=== PATIENT | female | born 1990 | race Caucasian/White ===

== ENCOUNTER 2020-08-15 10:49 | Emergency (ER) | payer OTHER, SELFPAY ==
--- NOTE | 2020-08-15 11:01 | ED.GENADULT ---
HPI - General Adult General Chief complaint: Unspecified Stated complaint: upper respiratory infection Time Seen by Provider: 08/15/20 11:02 Source: patient and RN notes reviewed Mode of arrival: ambulatory Limitations: no limitations History of Present Illness HPI narrative: 30-year-old female presents with complaints of possible exposure to COVID-19 and wanting a test for COVID-19. Carol reports no symptoms but has several live in family members with upper respiratory symptoms for the past 5-10 days without relief with treatment. Denies cough and chest congestion. No rhinorrhea and nasal congestion. No high fevers, chills, and sweats. Denies chest pain, coughing up blood, facial pain, foreign body sensation, and rash. The patient reports she have not been diagnosed with COVID-19. The patient reports she is not waiting for the results of a COVID-19 lab test. The patient reports she do not have weakness, myalgia, or fatigue. The patient reports she do not have a new or worsening cough. Denies chest pain. The patient reports she do not have any loss of smell or taste, nausea, vomiting, abdominal pain, or diarrhea. Denies recent traveling. Denies concerns for COVID-19 or exposures been home with limited outdoor exposure except for essential household needs, work, and return home. At this time, patient is not suspected of having COVID-19. Some parts of this dictation were generated by voice recognition software and may contain typographical and/or grammatical inaccuracies. Related Data Allergies Allergy/AdvReac Type Severity Reaction Status Date / Time No Known Allergies Allergy Unknown Verified 04/14/19 14:19 No Known Allergies Allergy Uncoded 04/14/19 14:19 Review of Systems Review of Systems: Narrative: CONSTITUTIONAL: Denies fever, chills, sweats. EYES: Denies visual changes, redness, discharge. ENT: Denies rhinorrhea, congestion, sore throat, otalgia. CARDIOVASCULAR: Denies chest pain, palpitations, edema. RESPIRATORY: Denies wheezing, cough. GASTROINTESTINAL: Denies abdominal pain, nausea, vomiting, diarrhea. GENITOURINARY: Denies dysuria, hematuria, abnormal discharge. SKIN: Denies rash or itching. MUSCULOSKELETAL: Denies acute back pain, joint pain, myalgia. NEUROLOGIC: Denies numbness or focal weakness. PSYCHIATRIC: Denies anxiety or depression. All systems reviewed & are unremarkable except as noted in HPI and below. [facility] Past Medical History Medical History (Updated 08/15/20 @ 16:00 by ESVIN Eckert) Ear infection Surgical History Surgical History (Updated 08/15/20 @ 16:00 by ESVIN Eckert) History of adenoidectomy History of tonsillectomy History of tympanostomy Family History Family History (Updated 08/15/20 @ 16:01 by ESVIN Eckert) Father Alive and well Mother Hypothyroidism Social History Social History (Updated 08/15/20 @ 16:02 by ESVIN Eckert) Smoking status: Former smoker Tobacco type: cigarettes Second hand tobacco smoke exposure: Yes Smoking end date: 07/13/18 Alcohol intake: current Substance use: never Substance use type: does not use Living arrangements: with family Occupation/Education: occupation Gender identity (if verbalized by the patient): Female Sexual Orientation (if Verbalized by the Patient): Straight or Heterosexual Comments At time of signature, agree with nurse past medical, surgical, social, and family history. There is no relevant family history pertinent to the presenting complaint. Exam Narrative: Exam Narrative: GENERAL: This is a well-nourished, well-developed patient, in no apparent distress. Talks in full sentences and ambulates with steady gait without dyspnea. HEAD: Normocephalic, atraumatic. EYES: PERRL. Sclera clear/white. Vision is grossly intact. NOSE: External nose normal with no obvious nasal discharge, nares without redness, no rhinorrhea. THROAT: Mucous membranes mo
[2020-08-15 11:03] VITALS: BP 131/89; PULSE 78; RESP 18; TEMP 36.7; O2SAT 98
== END 2020-08-15 11:49 | disposition home or self-care (01) ==
PROVIDERS: Emergency Provider Nurse Practitioner Family
DX: Z20.822 Contact with and (suspected) exposure to COVID-19 (principal); Z87.891 Personal history of nicotine dependence
CPT/HCPCS: 87426; 99213; C9803; G0463

== ENCOUNTER 2023-06-02 13:44 | Emergency (ER) | payer OTHER, SELFPAY ==
--- NOTE | 2023-06-02 13:52 | ED.URI ---
HPI - URI/Sore Throat General Chief Complaint: Upper Respiratory Infection Stated Complaint: sorethroat,rt ear pain Time Seen by Provider: 06/02/23 13:52 Source: patient Mode of arrival: ambulatory Limitations: no limitations History of Present Illness HPI Narrative: Adilene is a 33-year-old female patient presenting to the clinic today with complaints of sore throat, nasal congestion, and right ear pain times 3 days. She reports no known fever but has had some chills. She is 31 weeks . She denies any shortness of breath or chest pain. MD elicited complaint: sore throat and nasal congestion Related Data Home Medications Medication Instructions Recorded Confirmed Complete 1 tab-cap PO DAILY 06/02/23 06/02/23 Allergies Allergy/AdvReac Type Severity Reaction Status Date / Time No Known Allergies Allergy Unknown Verified 06/02/23 13:53 Review of Systems Review of Systems: Pertinent positives per HPI. Patient denies any fever, rash, headache, visual changes, dizziness, shortness of breath, chest pain, palpitations, nausea, vomiting, diarrhea, constipation, abdominal pain, or any urinary issues. [facility] Past Medical History Medical History BMI 37.0-37.9, adult Callus of foot Ear infection Effusion, left knee PCOS (polycystic ovarian syndrome) Physical exam, annual Weight gain Surgical History Surgical History History of adenoidectomy History of tonsillectomy History of tympanostomy Family History Family History Father Alive and well Mother Hypothyroidism Social History Social History Smoking packs per day: 0.15 Smoking cigarettes per day: 3.0 Years smoked: 2 Smoking pack-years: 0.30 Smoking status: Former smoker Tobacco type: cigarettes Second hand tobacco smoke exposure: Yes Smoking end date: 07/13/18 Alcohol intake: current Alcohol use details: social Substance use: never Substance use type: does not use Lack of Transportation: No Lack of Food: Never True Current Housing: I Have Housing Concerned About Future Housing: No Difficulty Paying Gas/Electric Bills: No Difficulty Paying for Meds: No Currently Unemployed: No Education: Master's Degree or Higher Difficulty w/ Childcare or Family Care: No Living arrangements: with family Occupation/Education: occupation Gender identity (if verbalized by the patient): Female Sexual Orientation (if Verbalized by the Patient): Straight or Heterosexual Comments At the time of my signature, I reviewed and agree with the nursing past medical, surgical, social, and family history. There is no relevant family history pertinent to the patient complaint. Exam Narrative: General: Well-developed, obese, in no apparent distress Head: Normocephalic, atraumatic Eyes: Pupils equally round and reactive to light bilaterally, EOM intact, sclera and conjunctive clear, no discharge, lids normal Ears: TMs intact and congested, ear canals clear, no drainage, grossly hearing normal. Nose: Nares patent, clear nasal discharge, mild inflammation, no sinus tenderness. Mouth: Oral pharynx red without lesions or masses, good dentition, MMM. Neck: Supple, trachea midline, no enlargement of anterior or posterior cervical nodes, no thyroid masses or goiter palpable. Cardio: Regular rate and rhythm, s1 and s2 normal, no murmur appreciated. Resp: Clear to auscultation bilaterally, no rhonchi, rales, wheezing or rubs Course Course Emergency Course: Portions of this record may have been created with voice recognition software. Level of Care: Express Care Visit Vital Signs Vital signs: Vital signs reviewed MDM - URI/Sore Throat MDM Narrative Medical decision making kaushal
[2023-06-02 14:03] VITALS: BP 120/59; PULSE 115; RESP 20; TEMP 36.9; O2SAT 100
== END 2023-06-02 14:29 | disposition home or self-care (01) ==
PROVIDERS: Emergency Provider Nurse Practitioner Family; PCP Family Medicine
DX: U07.1 COVID-19 (principal); Z87.891 Personal history of nicotine dependence
CPT/HCPCS: 87081; 87426; 87804; 87880; 99213; C9803; G0463

== ENCOUNTER 2023-06-24 16:16 | Outpatient (RCR) | payer OTHER, SELFPAY ==
--- NOTE | ~2023-06-24 | US_ITS ---
EXAMINATION: US OB BPP wo non-stress DATE: 06/24/2023 17:31 INDICATION: Decelerations in office . TECHNIQUE: Real-time ultrasound of the pelvis was performed. COMPARISON: None. FINDINGS: There is a single living fetus in vertex presentation, longitudinal lie. The placenta is anterior, m aternal left, and well distant from the cervix. The cervix was poorly visualized, obscured by the fet al head. heart rate is 135 bpm. The deepest vertical pocket is 5.1 cm. Biophysical profile performed by the technologist: breathing (30 sec sustained breathing in 30 minutes): 2 out of 2. movement (3 gross body movements in 30 minutes: 2 out of 2. tone (one episode of onrgchc-vuoyszwyu-fahrdrh limb movement): 2 out of 2. Amniotic fluid pocket (2 cm): 2 out of 2. Total score: 8 out of 8. IMPRESSION: Single living fetus in vertex presentation. Biophysical profile 8 out of 8. Amniotic fluid volume by deepest vertical pocket method is 5.1 cm, which is within normal limits. Reviewed, dictated and finalized at location K. D NURSE IMPRESSION: Single living fetus in vertex presentation. Biophysical profile 8 out of 8. Amniotic fluid volume by deepest vertical pocket method is 5.1 cm, which is wit hin normal limits.
[2023-06-24 16:33] VITALS: BP 123/70; PULSE 85
[2023-06-24 16:45] VITALS: BP 118/65; PULSE 77
[2023-06-24 17:00] VITALS: BP 119/67; PULSE 79
[2023-06-24 17:38] VITALS: BP 119/67; PULSE 76
== END 2023-09-22 23:59 | disposition home or self-care (01) ==
LOC: ANHOBOP 16:16
PROVIDERS: PCP Family Medicine; Visit Provider Advanced Practice Midwife
DX: O36.8330 Maternal care for abnormalities of the fetal heart rate or rhythm, third trimester, not applicable or unspecified (principal); Z3A.34 34 weeks gestation of pregnancy
CPT/HCPCS: 59025; 76819

== ENCOUNTER 2023-07-22 17:38 | Inpatient (IN) | payer OTHER, SELFPAY ==
[2023-07-22] VITALS (99 sets, daily range): BP systolic 92–132; BP diastolic 35–90; PULSE 76–127; TEMP 36.8; O2SAT 96–100; BMI 38.0
--- NOTE | 2023-07-22 18:09 | WPDOBADMIT ---
Obstetrics - Admit Note Admission Note: record reviewed. No pertinent additions to the history and/or any subsequent changes in the physical findings that are not consistent with the expected course of the were found. Additions to the history and/or subsequent changes in the physical findings follow. IOL, oligohydramnios, IVF , hx obesity, covid previously in early , SVE 2-3/70/-2 AROM small amount of clear, odorless fluid, anticipate vaginal delivery
[2023-07-22 18:11] LABS: Basophils Percent Auto 0.3 % (0.2-1.2); Eosinophils Absolute Auto 0.1 K/mm3 (0-0.3); Eosinophils Percent Auto 0.5 % (0-4.4); Hematocrit 38.9 % (37.0-47.0); Hemoglobin 12.4 g/dL (12.0-15.0); Immature Granulocyte Absolute 0.04 K/mm3 (0.00-0.031); Immature Granulocyte Percent A 0.4 % (0-0.5); Lymphocytes Absolute Auto 2.32 K/mm3 (0.9-3.2); Lymphocytes Percent Auto 23.2 % (18.3-44.2); Mean Corpuscular HGB Conc 31.9 g/dl (32-36); Mean Corpuscular Hemoglobin 28.1 pg (26-34); Mean Corpuscular Volume 88.2 fl (80-100); Mean Platelet Volume 11.4 fl (7.4-10.4); Monocytes Absolute Auto 0.5 K/mm3 (0.1-0.6); Monocytes Percent Auto 4.9 % (2.6-8.5); Neutrophils Absolute Auto 7.1 K/mm3 (1.3-6.7); Neutrophils Percent Auto 70.7 % (45.5-73.1); Platelet Count Result 247 k/mm3 (150-375); Red Blood Count 4.41 M/mm3 (4.2-5.4); Red Cell Distribution Width 13.8 % (11.5-14.5)
--- NOTE | 2023-07-22 18:14 | LDADM ---
This patient, Carol Lara, was admitted to Labor/Delivery/Recovery 107 on 07/22/23 at 17:38. Plans for labor, pain management and were discussed with patient. Patient/family oriented to hospital policies and general routines including ID bracelet, bed and alarms, visiting hours, pain management, procedures, bathroom and other care routines, personal items, smoking policy, room service/diet and guest tray routines, security routines, and visiting hours. Patient/Family are encouraged to report perceived risks to care and to ask questions if they do not understand what they are told or what they should do. See OBIX for further documentation.
[2023-07-22] MEDS: OXYTOCIN 30 UNITS/NS 500 ML 30 UNITS/500 ML BAG IV CONT (18:49)
[2023-07-22] MEDS: LACTATED RINGERS 1,000 ML 125 ML IV CONT (18:50)
--- NOTE | 2023-07-22 19:03 | WPDANESEPP ---
Anes - Eval Pre Procedure Procedure: labor epidural Date/Time: 07/22/23 19:03 Pre Op Diagnosis: ougo-induction Patient Data Age: 33 Gender: F Height: 1.7 m Weight: 110 kg Last Vital Signs Temp 36.8 C 07/22/23 18:14 Pulse Ox 99 07/22/23 19:00 O2 Del Method Room Air 07/22/23 18:14 Allergies Allergy/AdvReac Type Severity Reaction Status Date / Time No Known Allergies Allergy Unknown Verified 06/02/23 13:53 Home Medications Medication Instructions Recorded Confirmed Type Complete 1 tab-cap PO DAILY 06/02/23 06/02/23 History aspirin 81 mg tablet,delayed 81 mg PO DAILY 07/03/23 07/03/23 History release (Blayne Low Dose Aspirin) Laboratory Tests 07/22/23 18:07 WBC 10.0 K/mm3 (4.5-10.0) RBC 4.41 M/mm3 (4.2-5.4) Hgb 12.4 g/dL (12.0-15.0) Hct 38.9 % (37.0-47.0) MCV 88.2 fl (80-100) MCH 28.1 pg (26-34) MCHC 31.9 L g/dl (32-36) RDW 13.8 % (11.5-14.5) Plt Count 247 k/mm3 (150-375) MPV 11.4 H fl (7.4-10.4) Immature Gran % (Auto) 0.4 % (0-0.5) Neut % (Auto) 70.7 % (45.5-73.1) Lymph % (Auto) 23.2 % (18.3-44.2) [place] % (Auto) 4.9 % (2.6-8.5) Eos % (Auto) 0.5 % (0-4.4) Baso % (Auto) 0.3 % (0.2-1.2) Lymph # (Auto) 2.32 K/mm3 (0.9-3.2) [place] # (Auto) 0.5 K/mm3 (0.1-0.6) Eos # (Auto) 0.1 K/mm3 (0-0.3) Baso # (Auto) 0.0 K/mm3 (0.0-0.1) Abs Immat Gran (auto) 0.04 H K/mm3 (0.00-0.031) Absolute Neuts (auto) 7.1 H K/mm3 (1.3-6.7) Absolute Nucleated RBC 0.0 K/mm3 (0.0-0.012) Nucleated RBC % 0.0 % (0.0-0.2) RPR Pending Blood Type A Positive Antibody Screen Pending Patient hx anesthesia problems: none Family hx anesthesia problems: none Results Review: All pre-operative results and documents have been reviewed as part of the pre-operative evaluation. [facility] Past Medical History Medical History BMI 37.0-37.9, adult Callus of foot Ear infection Effusion, left knee PCOS (polycystic ovarian syndrome) Physical exam, annual Weight gain Surgical History Surgical History History of adenoidectomy History of tonsillectomy History of tympanostomy Family History Family History Father Alive and well Mother Hypothyroidism Social History Social History Smoking packs per day: 0.15 Smoking cigarettes per day: 3.0 Years smoked: 2 Smoking pack-years: 0.30 Smoking status: Former smoker Tobacco type: cigarettes Second hand tobacco smoke exposure: Yes Smoking end date: 07/13/18 Alcohol intake: current Alcohol use details: social Substance use: never Substance use type: does not use Do You Feel Safe in your Home?: Yes Lack of Transportation: No Lack of Food: Never True Current Housing: I Have Housing Concerned About Future Housing: No Difficulty Paying Gas/Electric Bills: No Difficulty Paying for Meds: No Currently Unemployed: No Education: Master's Degree or Higher Difficulty w/ Childcare or Family Care: No Living arrangements: with family Occupation/Education: occupation Gender identity (if verbalized by the patient): Female Sexual Orientation (if Verbalized by the Patient): Straight or Heterosexual Spiritual care concerns: No Exam Day of Procedure 07/22/23 19:03 Patient weight: obese Heart: regular rate and rhythm Lungs: normal air movement Airway: Mallampati scale Neurological: alert and oriented
--- NOTE | 2023-07-22 23:46 | PM.OBPRVD ---
OB - Vaginal Delivery Note Procedure Delivery date: 07/22/23 Events: Other (IVF, oligohydramnios) Induction method: AROM and Per Pitocin Protocol Delivery monitor: External FHT and External Uterine Route of delivery: Laceration Description: Superficial Specimen: Yes Quantitative Blood Loss (ml): 100 Anesthesia type: Epidural Disposition: Floor [place] Baby Date of : 07/22/23 Time of : 23:35 Weeks of gestation at delivery: 38 gender: Female presentation: vertex position: Left Occiput Anterior Placenta delivery description: Spontaneous Cord Vessel Description: 3 Vessels and Other (short, shearing after delivery of fetus, clamped and cut) score one minute: 8 score five minutes: 8 Narrative: head delivered rotated to DARWIN, anterior shoulder not easily delivered, rotated to the right and then was able to deliver anterior shoulder, the rest of the baby followed quickly after, short cord, shearing and small blood loss about 05 cc, cord clamped and then cut.baby moving all extremities, skin to skin and in stable condition
[2023-07-23] VITALS (12 sets, daily range): BP systolic 84–131; BP diastolic 49–75; PULSE 84–114; RESP 16–18; TEMP 36.6–36.9; O2SAT 97–100
[2023-07-23] MEDS: BENZOCAINE 20% AER SPR (*SP) 56 GM CAN 1 SPRAY TOPICAL (01:50)
[2023-07-23] MEDS: WITCH HAZEL 40 PADS 1 PAD TOPICAL (01:50)
--- NOTE | 2023-07-23 01:52 | PC.NURSE ---
Patient transferred to post room # 285 via ( W/C ). Support person present. Oriented to unit, room, information board, rooming in, admission packet and security measures. Patient verbalizes understanding.
[2023-07-23] MEDS: IBUPROFEN 600 MG TABLET PO ×3 (05:00→19:16)
[2023-07-23 05:48] LABS: Hematocrit 34.4 % (37.0-47.0); Hemoglobin 10.8 g/dL (12.0-15.0)
[2023-07-23] MEDS: DOCUSATE SODIUM 100 MG CAPSULE PO (08:07)
[2023-07-23] MEDS: MULTIVIT/MIN/PREN/FOL AC/IRON TABLET 1 TAB PO (08:07)
--- NOTE | 2023-07-23 08:23 | P.PNOB_ITS ---
OB - PN: Subj Subjective Date/time seen: 07/23/23 08:23 Patient comments: no complaints, pain well controlled, incisional pain, tolerating diet and flatus present OB - PN: Obj Data Labs 07/23/23 04:50 Labs: Laboratory Results - last 24 hr 07/22/23 07/23/23 18:07 04:50 WBC 10.0 RBC 4.41 Hgb 12.4 10.8 L Hct 38.9 34.4 L MCV 88.2 MCH 28.1 MCHC 31.9 L RDW 13.8 Plt Count 247 MPV 11.4 H Immature Gran % (Auto) 0.4 Neut % (Auto) 70.7 Lymph % (Auto) 23.2 [place] % (Auto) 4.9 Eos % (Auto) 0.5 Baso % (Auto) 0.3 Lymph # (Auto) 2.32 [place] # (Auto) 0.5 Eos # (Auto) 0.1 Baso # (Auto) 0.0 Abs Immat Gran (auto) 0.04 H Absolute Neuts (auto) 7.1 H Absolute Nucleated RBC 0.0 Nucleated RBC % 0.0 Blood Type A Positive Antibody Screen Negative OB - PN A/P Plan day: 1 Plan: routine care Comments: No problems, routine care Time Spent With Patient Time: Total time spent is greater than 50% in coordination of care (as documented) at patient's floor/unit and/or counseling patient: Exam Const: General: comfortable, no acute distress and alert Resp: Effort & Inspection: normal respiratory effort Auscultation: no crackles, no rales and no rhonchi Cardio: Rate: regular rate Heart sounds: no click, no murmurs and no rubs GI: Inspection: non-distended GI Palp: No Tenderness to palpation present (GI) Auscultation: normal bowel sounds Other: Incision - CDI Extrem: General: normal to inspection, no pedal edema and no calf tenderness
--- NOTE | 2023-07-23 09:01 | WPDANLDPN2 ---
Anes-Prog Note L&D Date/Time: 07/23/23 09:01 Comfortable throughout: labor and delivery Neuraxial method: epidural Epidural/Spinal procedure site: clean & non-tender Neuro status: Neuro function grossly intact. Cardiovascular status: normal Respiratory status: normal Airway patency: baseline Mental status: baseline Post-Op hydration status: normal Vital Signs: Last Vital Signs Temp 36.9 C 07/23/23 04:30 Pulse 89 07/23/23 04:30 Resp 18 07/23/23 04:30 BP 114/66 07/23/23 04:30 Pulse Ox 97 07/23/23 04:30 O2 Del Method Room Air 07/23/23 02:14 Pain score (VAS): 3/10 I/O: Intake & Output 07/22/23 07/23/23 07/23/23 23:59 07:59 15:59 Intake Total 500 Output Total 50 Balance 500 -50 Post-procedural complaints: none Patient feedback: Patient satisfied with anesthetic care.
--- NOTE | 2023-07-23 13:42 | PC.NURSE ---
[id number] Introductions were made, then consulted with patient to assess needs related to . Discussed with mother her?plans to feed?her infant, the?experience so far and reviewed with mother questions, concerns, and education refresher. Resources provided for inpatient and outpatient services with the feeding sheet, mom/baby guide and name written on the communication board. Mother voiced understanding of information and will call for the next feeding. [id number] Mother led the conversation with her experience so far, plan to feed her infant, and her ability to independently latch optimally without discomfort. Mother states she has been having trouble keeping her daughter awake to maintain so we practiced changing positioning, breast sides, gentle compression, and making sure infant was awake and latched deeply. Infant latched optimally to the left, then right breast in football and cross cradle position after mother attempted with cradle. Education given to the mother of how to visualize the suckling (with good rocking jaw motion), swallows (dropping of the lower jaw) and how to listen for drinking at the breast (the ka sound). Infant was able to maintain latch without pain to mother protecting the nipple with optimal positioning and latching deeply. Mother voiced understanding of skin to skin, stimulating with massage touch, responsive feedings, to encourage if it has been 2 -2.5 hours since the start of the last and possibly pump to protect her milk supply if infant doesn't maintain. Mother is feeding appropriately for growth of and understands stimulating infant to eat if needed. Infant has had appropriate feedings in the last 24 hours meets the outcomes for weight, output, blood sugar and jaundice at this time. Mother states she is confident to continue effectively her at home, when to call for assistance, denies any additional assistance or education at this time. Reinforced understanding of milk production, transition of milk, signs of adequate intake, transition of stool, prevention/relief of engorgement, plugged ducts, mastitis, responsive watching for feeding cues, the different methods of stimulating infant to breastfeed 1-3 hours after the start of the last feeding, community resources, and when to call a provider using the resource of the mom and baby guide and feeding sheet. Mother voiced understanding of the education shared. Reported to the Primary RN.
[2023-07-23 16:56] LABS: Rapid Plasma Reagin Non-Reactive (NonReactive)
[2023-07-24] MEDS: IBUPROFEN 600 MG TABLET PO ×2 (03:44→11:19)
[2023-07-24 07:50] VITALS: BP 122/81; PULSE 82; RESP 18; TEMP 36.2; O2SAT 100
--- NOTE | 2023-07-24 08:02 | PM.OBPNVD ---
OB - PN: Subj Subjective Date/time seen: 07/24/23 08:02 Interval history: pp day 2 OB - PN: Obj Data Labs 07/23/23 04:50 Labs: Laboratory Results - last 24 hr 07/22/23 18:07 RPR Non-reactive OB - PN A/P Time Spent With Patient Time: Total time spent is greater than 50% in coordination of care (as documented) at patient's floor/unit and/or counseling patient: Review of Systems Review of Systems: All systems reviewed & are unremarkable except as noted in HPI and below Exam Const: General: cooperative, healthy appearing and comfortable Resp: Effort & Inspection: normal respiratory effort Cardio: Rate: regular rate GI: Inspection: normal to inspection Skin: General skin exam: normal color Neuro: General: patient oriented x3 Extrem: Right lower extremity: normal to inspection Left lower extremity: normal to inspection
--- NOTE | 2023-07-24 08:03 | PM.OBDSVD ---
DS: Admitting Diagnosis Discharge Date 07/24/23 Admitting Diagnosis IOL, oligohydramnios DS: Discharge Diagnosis Discharge Diagnosis (1) Vaginal delivery: Code(s): O80 - Encounter for full-term uncomplicated delivery Status: Acute OB - DS: Summary OB Procedures : None OB Procedures Intrapartum: Spontaneous Vag Delivery OB Procedures: : None Peripartum Data Laceration Description: Superficial Time Spent with Patient Time attestation: Total time spent providing and/or coordinating discharge services: DS: Data Data Completed and Pending Pending studies at discharge: Pending at discharge 07/22/23 23:37 Surgical [PTH] Routine Labs on day of discharge: Labs from last 24 hours 07/22/23 18:07 RPR Non-reactive Discharge Plan Discharge Attending physician on discharge: Leeanna Sethi Discharging Clinician: Ivonne Becerril Patient Disposition: Home, Self-Care Activity: pelvic rest Diet: regular Patient Instructions: Antibiotic Form Stand Alone Forms: General Discharge Information Follow-up/Referrals: Ivonne Becerril, CNM [Certified Nurse Senior Solutions Architect] - 4 Weeks Discharge Medications: New ibuprofen 600 mg Tablet 600 mg PO Q6H PRN (Reason: Cramping) Qty: 30 0RF Continued Complete 1 tab-cap PO DAILY Discontinued aspirin [Blayne Low Dose Aspirin] 81 mg Tablet,Delayed Release (Dr/Ec) 81 mg PO DAILY Date of admission: 07/22/23 17:38 Primary Care Provider: Johnny Qureshi Admitting Provider: Leeanna Sethi Attending physician on admission: Leeanna Sethi Condition: Stable
[2023-07-24] MEDS: LANOLIN (LANSINOH) 7.5 GM CREAM 1 APPLIC TOPICAL (08:19)
[2023-07-24] MEDS: DOCUSATE SODIUM 100 MG CAPSULE PO (08:19)
[2023-07-24] MEDS: MULTIVIT/MIN/PREN/FOL AC/IRON TABLET 1 TAB PO (08:19)
--- NOTE | 2023-07-24 10:00 | PC.NURSE ---
Patient viewed the discharge video Mother & Baby Care, The First Two Weeks online. Patient was given the opportunity and encouraged to ask questions. Patient verbalized understanding of information shared and has been given the mother/baby guide for home reference.
--- NOTE | 2023-07-24 17:17 | PC.NURSE ---
[id number] Mother led the conversation with her experience so far, plan to feed her , and is demonstrating her ability to independently latch infant optimally without discomfort cross cradle to the left breast. Reminded mother to use good handwashing technique to prevent infection. Mother is feeding appropriately for growth of infant and understands stimulating infant to eat if needed. Infant has had appropriate feedings in the last 24 hours meets the outcomes for weight, output, blood sugar and jaundice at this time. Mother states she is confident to continue effectively her infant at home, when to call for assistance, denies any additional assistance or education at this time. Reinforced understanding of milk production, transition of milk, signs of adequate intake, transition of stool, prevention/relief of engorgement, plugged ducts, mastitis, responsive watching for feeding cues, the different methods of stimulating to breastfeed 1-3 hours after the start of the last feeding, community resources, and when to call a provider using the resource of the mom and baby guide and feeding sheet. Mother voiced understanding of the education shared. Reported to the Primary RN.
[2023-07-25 10:29] VITALS: BP 130/74; PULSE 73; RESP 18; TEMP 36.9; O2SAT 100
== END 2023-07-24 13:05 | disposition home or self-care (01) | DRG 807 ==
LOC: ANHLDR 17:40 → ANHOB2 07-23 01:54
PROVIDERS: Advanced Practice Midwife; Admitting Provider Obstetrics & Gynecology; PCP Family Medicine; Visit Provider Obstetrics & Gynecology
DX: O41.03X0 Oligohydramnios, third trimester, not applicable or unspecified (principal); Z37.0 Single live birth; Z3A.38 38 weeks gestation of pregnancy; O69.3XX0 Labor and delivery complicated by short cord, not applicable or unspecified; O62.3 Precipitate labor
CPT/HCPCS: 36415; 85014; 85018; 85025; 86592; 86850; 86900; 86901; 88307; A9270; J2590; J7120

== ENCOUNTER 2024-09-20 09:00 | Outpatient (CLI) | payer OTHER, SELFPAY ==
--- NOTE | ~2024-09-20 | XR_ITS ---
XR knee RT min 4V Ordering provider: Elvie French APRN History: . S89.91XA - Unspecified injury of right lower leg, initial... . Comparison: None. FINDINGS: BONES: No acute fracture or dislocation. JOINT SPACES: Normal. SOFT TISSUES: Normal. IMPRESSION: No acute osseous abnormality right knee. Reviewed, dictated and finalized at location A.
--- OUTSIDE RECORDS SUMMARY | 2024-09-20 09:36 | XMS_ITS | Clinical Summary ---
Author Organization [facility] Address [address] [place] [address] Care Team Providers Care Early Childhood Associate Teacher Name Role Phone Chandrakant Rios DO Primary Care Provider [phone] Allergies No known active allergies Medications estradioL (Estrace) 2 mg tablet Take 1 tablet (2 mg total) by mouth 2 (two) times a day 60 tablet 2 10/02/2022 Active vit no.124/iron/fol ic ( VITAMIN ORAL) Take by mouth Ac tive progesterone 50 mg/mL injection Inject 25mg to 100mg IM daily as directed by 20 mL 2 12/11/2022 Active Active Problems No known active problems Surgical History Surgery Date Site/Laterality Comments TONSILECTOMY, ADENOIDECTOMY, BILATERAL MYRINGOTOMY AND TUBES OVUM / OOCYTE RETRIEVAL 11/06/2022 egg retrieval TRANSFER EMBRYO INTRAUTERINE 11/09/2022 Embryo Transfer 1 day 3 Medical History Medical History Date Comments Polycystic ovary syndrome Family History Medical History Relation Name Comments Thyroid disease Mother Cancer Other Paternal Aunt Thyroid disease Other Maternal Aun ts Thyroid disease Paternal Grandmother Relation Name Status Comments Mother Other Paternal Grandmother Social History Tobacco Use Types Packs/Day Years Used Date Smoking Tobacco: Never AUDIT-C Answer Date Recorded Frequency of Alcohol Consumption Not on file 08/02/2021 Q2: How many drinks containi ng alcohol do you have on a typical day when you are drinking? 3 or 4 08/02/2021 Frequency of Binge Drinking Not on file 07/14 Comments Unknown Sex and Gender Information Value Date Recorded Sex Assigned at Not on file Legal Sex Female 10:28 AM PACKER OPERATOR AUTOMATIC Gender Identity Female 07/27/2021 10:31 PM PACKER OPERATOR AUTOMATIC Sexual Orientation Straight 07/27/2021 10 :31 PM PACKER OPERATOR AUTOMATIC Obstetrics History Para Term AB IAB SAB Ectopic Multiple Livin g Live Births 2 1 1 1 1 Date Outcome GA Total Labor Labor/2nd/3rd Weight Sex Type Anes PTL Becca A1 A5 Name Clin 2018 Term M Vag-S pont Living Last Filed Vital Signs Vital Sign Reading Time Taken Comments Blood Pressure 120/79 04/27/2023 2:42 PM CDT Pulse 82 12/11/2022 1:38 PM CDT Temperature 37 C (98.6 F) 11/06/2022 7:23 AM CDT Respiratory Rate 17 11/06/2022 10:15 AM CDT Oxygen Saturation 99% 11/06/2022 10:15 AM CDT Inhaled Oxygen Concentration - - Weight 113.4 kg (250 lb) 04/27/2023 2:42 PM CDT Height 170.2 cm (5' 7 ) 04/27/2023 2:42 PM CDT Body Mass Index 39.16 04/27/2023 2:42 PM CDT Plan of Treatment Health Maintenance Due Date Last Done Comments Cervical Cancer Screening 1991 Depression Screening 1991 Varicella Vaccines (1 of 2 - 13+ 2-dose series) 02/05/2004 Hepatitis B Screening 2009 Regular Well Visit/Exam 18-64 2009 Influenza Vaccine (#1) 2024 , 04/14/2019 DTaP/Tdap/Td Vaccine (3 - Td or Tdap) 06/12/2033 06/12/2023, 03/09/2019 Hepatitis C Screening Completed 05/29/2022 HPV Vaccines Aged Out No longer eligi ble based on patient's age to complete this topic Pneumococcal vaccine <65 Aged Out No longer eligible based on patient's age to complete this topic Procedures Procedure Name Priority Date/Time Associated Diagnosis Comments HEPATITIS C ANTIBODY Routine 05/29/2022 2:18 PM PACKER OPERATOR AUTOMATIC Screening examination for venereal disease from Last 3 Months or Most Recently Relevant to Health Maintenance Results * Hepatitis C antibody (05/29/2022 2:18 PM PACKER OPERATOR AUTOMATIC) Hep C Ab Nonreactive Nonreactive [facility] Comment:Antibodies to HCV no t detected. Does NOT exclude the possibility of recent exposure to HCV. Current interpretive data was last revised on 22 Blood 05/29/2022 2:18 PM PACKER OPERATOR AUTOMATIC 05/29/2022 4:37 PM PACKER OPERATOR AUTOMATIC us Em Marrreo MD LAB MICROBIOLOGY - G ENERAL ORDERABLES Final Result [facility] Department [place] [address] from Last 3 Months or Most Recently Relevant to Health Maintenance Insurance [facility] CHOICE PLUS [facility] H[facility]/PPO Address: [address] [address] [facility] CHOICE PLUS [facility] H[facility]/PPO Address: [address] [address] [place] [address] Advance Directives For more information, please contact: [phone] * Full Code (Latest Code Status on File) Date Activated Date Inactivated Comments 11/06/2022 6:55 AM 11/07/2022 5:24 AM Care Teams Early Childhood Associate Teacher Relationship Specialty Start Date End Date Chandrakant Rios DO PCP - General Internal Medicine 06/14/21
--- OUTSIDE RECORDS SUMMARY | 2024-09-20 09:36 | XMS_ITS | Referral Summary ---
Author Organization [facility] Address [address] [place] [address] Care Team Providers Care Museum Attendant Name Role Phone Chandrakant Rios Primary Care Provider [phone] Allergies No known active allergies Medications estradioL [...] Active Active Problems No known active problems Social History Tobacco Use Types Packs/Day Years [...] on file Legal Sex Female 10:28 AM SYSTEM ARCHITECT Gender Identity Female 07/27/2021 10:31 PM SYSTEM ARCHITECT Sexual Orientation Straight 07/27/2021 10 :31 PM SYSTEM ARCHITECT Last Filed Vital Signs Vital Sign Reading [...] 04/27/2023 2:42 PM CDT Plan of Treatment Not on file Procedures Procedure Name Priority Date/Time Associated Diagnosis Comments HEPATITIS C ANTIBODY Routine 05/29/2022 2:18 PM SYSTEM ARCHITECT Screening examination for venereal disease from Last 3 Months or Most Recently Relevant to Health Maintenance Results * Hepatitis C antibody (05/29/2022 2:18 PM SYSTEM ARCHITECT) Hep C Ab Nonreactive Nonreactive [facility] Comment:Antibodies to HCV no t detected. Does NOT exclude the possibility of recent exposure to HCV. Current interpretive data was last revised on 22 Blood 05/29/2022 2:18 PM SYSTEM ARCHITECT 05/29/2022 4:37 PM SYSTEM ARCHITECT Em Marrero MD LAB MICROBIOLOGY - G ENERAL ORDERABLES Final Result [facility] Department [place] [address] from Last 3 Months or Most Recently Relevant to Health Maintenance Insurance [facility] CHOICE PLUS Member Subscriber Plan / Payer (Ef fective 2022-Present) Name:Carol Bishop Relation to Subscriber:Self Name:Carol Bishop Payer ID:[id number] (NAIC) Type:[facility] HMO/PPO Address: [place] [id number] [facility] CHOICE PLUS Advance Directives For more information, please contact: [phone] * Full Code (Latest Code Status on File) Date Activated Date Inactivated Comments 11/06/2022 6:55 AM 11/07/2022 5:24 AM Care Teams Museum Attendant Relationship Specialty Start Date End Date Chandrakant Rios DO PCP - General Internal Medicine 06/14/21
--- OUTSIDE RECORDS SUMMARY | 2024-09-20 09:37 | XMS_ITS | Data Portability ---
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 Discussed plan. Not available 07/22/2023 16:42:19 07/22/2023 07/22/2023 NST not completed. Pt to L & D for IOL. ADRYAN RICHTER Not available 07/22/2023 18:28:38 02/26/2024 02/26/2024 Annual gynecological exam performed. Patient will come back in a year unless there are new symptoms. Take Calcium with Vitamin D 1200mg daily if not receiving in daily diet. It is strongly advised to have an annual flu shot and up can obtain at most pharmacies. If you have not had a TDap shot in the last 10 years you should obtain one as well. Discussed with patient & provided with information regarding Gardisil vaccine to prevent the 4 strains for HPV that cause cervical cancer if under age 26. Encourage safe sexual practices, to use condoms and limit partners if not already in a monogamous relationship. Do monthly self breast exams. Have mammogram yearly or every other year depending on family history. BRCA testing is now available for patients with strong genetic history of female cancer. If interested contact the office. Engage in daily exercise of low impact aerobic exercise 45-60 minutes 4-5 times weekly. Avoid tobacco and illicit drugs as well as using moderation with alcohol intake less than 1-2 8 oz beverages daily. This lifestyle behavior pattern will lead to less health conditions and longer life span. If BMI greater than 25 weight watchers or dietary consult advised. Patient received above instructions, and questions have been answered. If you have any questions please call or respond to this email. Patient was made aware of the patient portal and may obtain a paper copy of today's plan if desired. pap not collected plan prometrium q 3 months for a withdrawal bleed after stopping f/u one year [email or web address] Not available 02/26/2024 16:36:53 Plan of Treatment Reminders Order Date Submit Date Provider Last Modified By Organization Details Last Modified Time Details Appointments None recorded. Lab None recorded. Referral None recorded. Procedures None recorded. Surgeries None recorded. Imaging US, obstetric, biophysical profile + non-stress test 2023 024 [email or web address] [place], [address], [place], [address], 4 23:04:14 non-stress test 2023 024 [facility] [address], [place], [address], 4 16:55:59 Medication Orders Provera 10 mg tablet 2023 024 [facility] 009, [address], [address], 16:37:42 Patient TargetsNo targets recorded. Patient InstructionsNo instructions recorded. Reason for Referral None Reported. Results Created Date Observation Date Name Description Value Unit Range Abnormal Flag Note LastModifiedBy Organization Detail LastModifiedTime 07/03/20 23 07/03/2023 CULTU RE: GROUP B STREP SCREE N, REFLE X SUSCE PTIBI LITY result report SEE RESULT S BELOW Test: Cultu re: Group B Strep , Refle x Susce ptibi lity ([facility]/ [facility] ) Speci men Sourc e: Vagin a/Rec dennis Speci men Type: Vagin al/Re ctal Speci men Date: 07/03 2:28 PM Resul t Date: 07/06 2:37 PM Resul t Statu s: Final resul t Abnor mal: No Resul ting Lab: [facility] [address] [facility] [address] Tel: CULTU RE ----- ----- ----- --- No Group B strep isola alanis at 2 days (dixon ctive broth enhan cemen t) Not Available [facility] (Lab) [address], [place], [address], 07/06/2023 15:41:36 06/24/2006/24/2023 non-s tress test No observ ation record ed. [email or web address] [place] [address], [place], [address], 06/24/2023 18:35:52 06/24/2006/24/2023 , obste tric, follo w-up No observ ation record ed. [email or web address] [facility], [place], [address], 06/25/2023 10:15:26 06/24/20 23 06/24/2023 , obste tric, follo w-up No observ ation record ed. [address] [facility], [place], [address], 06/25/2023 10:15:26 07/03/20 non-s tress test No observ ation record ed. [email or web address] Not Available 07/03 12:29:51 07/03/20 23 07/03/2023 non-s tress test No observ ation record ed. [email or web address], [place], [address], 07/20/2023 13:17:02 07/03/20 23 07/03/2023 US, obste tric, follo w-up No observ ation record ed. kia Radha [address], [place], [address], 07/15/2023 12:26:03 07/08/20 23 07/08/2023 non-s tress test No observ ation record ed. kia [place] [address], [place], [address], 07/08/2023 18:02:55 07/08/20 23 07/08/2023 US, obste tric, bioph ysica l profi le No observ ation record ed. kia [place] [address], [place], [address], 07/08/2023 18:03:17 07/08/20 23 07/08/2023 US, obste tric, follo w-up No observ ation record ed. [email or web address] [address], [place], [address], 07/10/2023 09:09:28 07/10/20 23 07/10/2023 US, obste tric, follo w-up No observ ation record ed. [email or web address] [address], [place], [address], 07/14/2023 13:08:10 07/10/20 23 07/10/2023 US, obste tric, limit ed No observ ation record ed. [email or web address] [place] [address], [place], [address], 07/10/2023 18:09:55 07/15/19 24 07/15/2023 non-s tress test No observ ation record ed. [email or web address] [place] [address] [address], [place], [address], 07/15/2023 17:48:21 07/15/19 24 07/15/2023 US, obste tric, follo w-up No observ ation record ed. [email or web address] [place] [address], [place], [address], 07/15/2023 18:23:12 07/15/19 24 07/15/2023 US, obste tric, bioph ysica l profi le + non-s tress test No observ ation record ed. [email or web address] [place] [address], [place], [address], 07/15/2023 18:23:24 07/15/19 24 07/15/2023 US, obste tric, follo w-up No observ ation record ed. [email or web address] [address], [place], [address], 07/15/2023 21:15:40 07/22/19 24 07/22/2023 US, obste tric, bioph ysica l profi le + non-s tress test No observ ation record ed. [email or web address] [place] [address], [place], [address], 07/22/2023 16:28:48 07/22/19 24 07/22/2023 US, obste tric, bioph ysica l profi le + non-s tress test No observ ation record ed. Rdaha [address], [place], [address], 07/23/2023 09:54:34 07/22/19 24 12/22/2023 non-s tress test No observ ation record ed. [email or web address] [place] [address], [place], [address], 12/22/2023 20:30:25 Result Notes None recorded. Problems Name Problem SNOMED Code Status Onset Date Resolution Date Notes Provider Name and Address Organization Details Recorded Time Finding of fertilit y Completed 201707/18/2020 Female infertil ity;Bernard rded Elsewher e: No Locat ion: [facility] S ource: EHR Sales Team Leader dex: N Practi ce ID: 0001 Rufino lable Time: 03:30:00 PM [facility] 18:06:38 Pregnanc y, childbir th and puerperi um finding Completed 201807/18/2020 Encntr for suprvsn of normal first preg, third trimeste r;Record ed Elsewher e: No Locat ion: [facility] S ource: EHR Sales Team Leader dex: N Practi ce ID: 0001 Rufino lable Time: 05:00:00 PM [facility] 18:07:09 Amenorrh ea [id number] Completed 201612/03/2020 Amenorrh ea, unspecif ied;Prac margarito ID: 0001 [facility], [facility] 10:48:38 Pregnanc y test negative 439846411 Completed 201607/18/2020 Encounte r for pregnanc y test, result negative ;Practic e ID: 0001 [facility], [facility] 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 18:07:18 Pregnanc y detectio n examinat ion Completed 201807/18/2020 Encounte r for pregnanc y test, result positive ;Practic e ID: 0001 [facility], [facility] 18:06:57 Gestatio n period, 9 weeks 972560 Completed 201807/18/2020 9 weeks gestatio n of pregnanc y;Practi ce ID: 0001 Emili zuleta, [facility] 18:06:49 Normal pregnanc y in libiaa kristin [id number] 00008 Completed 201807/18/2020 Encounte r for suprvsn of normal pregnanc y, first trimeste r;Practi ce ID: 0001 Emili zuleta, [facility] 18:06:54 Antenata l screenin g Completed 201807/18/2020 Encounte r for other specifie d antenata l screenin g;Practi ce ID: 0001 Emili zuleta, [facility] 18:06:25 Pregnanc y, childbir th and puerperi um finding Completed 201807/18/2020 Encntr for suprvsn of normal first preg, second trimeste r;Practi ce ID: 0001 Emili zuleta, [facility] 18:07:06 Complica tion of pregnanc y, childbir th and/or puerperi um [id number] Completed 201807/18/2020 Oth diseases and conditio ns compl preg/chl dbrth;Pr actice ID: 0001 Emili zuleta, [facility] 18:07:29 Finding of contents of cervix 896651397 Completed 201807/18/2020 Weeks of gestatio n of pregnanc y not specifie d;Practi ce ID: 0001 Emili zuleta, [facility] 18:06:33 Antenata l screenin g for malforma tion Completed 201807/18/2020 Encounte r for antenata l screenin g for malforma tions;Pr actice ID: 0001 Emili zuleta, [facility] 18:06:29 Pregnanc y, childbir th and puerperi um finding Completed 201807/18/2020 Encntr for suprvsn of normal first pregnanc y, unsp trimeste r;Practi ce ID: 0001 Emili zuleta, [facility] 18:07:03 Placenta previa 18262678 Completed 201812/03/2020 Placenta previa specifie d as w/o hemor, second trimeste r;Practi ce ID: 0001 Carol zuleta, [facility] 10:48:41 Gestatio n period, 24 weeks 089114593 Completed 201807/18/2020 24 weeks gestatio n of pregnanc y;Practi ce ID: 0001 Emili zuleta, [facility] 18:06:41 Term pregnanc y delivere d [id number] Completed 201807/18/2020 Encounte r for full-ter m uncompli cated delivery ;Practic e ID: 0001 Emili zuleta, [facility] 18:07:24 Single live [id number] Completed 201807/18/2020 Single live ;Pr actice ID: 0001 Emili zuleta, [facility] 18:07:13 Gestatio n period, 39 weeks 10293930 Completed 201807/18/2020 39 weeks gestatio n of pregnanc y;Practi ce ID: 0001 Emili zuleta, [facility] 18:06:47 Lochia finding Completed 201812/03/2020 Encounte r for routine postpart um follow-u p;Practi ce ID: 0001 Carol zuleta, [facility] 10:48:40 Uterine size for dates discrepa ncy Completed 201807/18/2020 Uterine size-castro e discrepa ncy, third trimeste r;Record ed Elsewher e: No Locat ion: [facility] S ource: EHR Sales Team Leader dex: N Daveyti ce ID: 0001 Rufino lable Time: 04:30:00 PM [facility] 18:07:[address] Concept Completed 201607/18/2020 Encntr for general adult medical exam w/o abnormal findings ;Recorde d Elsewher e: No [facility]: EHR Sales Team Leader dex: N Daveyti ce ID: 0001 Rufino lable Time: 01:00:00 PM [facility] 18:07:16 Speciali zed medical examinat ion Completed 201307/18/2020 Gynecolo gical Examinat ion;Bernard rded Elsewher e: No Locat ion: [facility] S ource: EHR Sales Team Leader dex: N Daveyti ce ID: 0001 Rufino lable Time: 03:00:00 PM [facility] 18:07:21 Gestatio n period, 33 weeks [id number] Completed 201807/18/2020 33 weeks gestatio n of pregnanc y;Record ed Elsewher e: No Locat ion: [facility] S ource: EHR Sales Team Leader dxe: N Practi ce ID: 0001 Rufino lable Time: 04:30:00 PM [facility] 18:06:43 Screenin g for malignan t neoplasm of cervix Completed 201307/18/2020 Screenin g for malignan t neoplasm s of the cervix;R ecorded Elsewher e: No Locat ion: [facility] S ource: EHR Sales Team Leader dex: N Practi ce ID: 0001 Rufino lable Time: 03:00:00 PM Emili zuleta, [facility] 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 3 09:38:54 Pregnanc y 88242149 Completed 202207/24/2023 [facility], [facility] 4 13:11:24 Maternal obesity complica ting pregnanc y, childbir th and the puerperi um, antepart um 6056324766 07 Completed 2022 BMI 38- ante testing at 37w Blaireparmjit [facility], [facility] 4 13:11:16 IVF - in-vitro fertiliz ation pregnanc y 5920351391 2101 Completed 2022 echo normal, ante testing 36w [facility], [facility] 4 13:11:16 COVID-19 [id number] Completed 2022 ASA & Serial growth Jannet zuleta, [facility] 4 13:11:16 Problem Notes None recorded. Procedures Surgical History Date Name Laterality Status Provider Name and Address Organization Details Recorded Time 02/26/20 24 Date of Last Pap Smear completed Emili Oconnell [facility] 02/26/2024 16:17:14 10/12/19 23 oocyte recovery completed Emili Oconnell [facility] 04/15/2023 18:15:28 10/12/19 23 IVF - In vitro fertilization with pre-implantation genetic diagnosis completed Emili Oconnell [facility] 04/15/2023 18:15:45 07/13/18 97 Tonsillectomy completed Emili Oconnell [facility] 04/15/2023 18:14:42 Imaging Results Imaging Date Name Status LastModified by Organiz ation Details LastModified Time 06/24/2023 non-stress test completed kia [place] [address], [place], [address], 06/24/2023 18:35:52 06/24/2023 US, obstetric, follow-up completed [place] [id number] [facility] [address], [place], [address], 06/25/2023 10:15:26 06/24/2023 US, obstetric, follow-up completed [place] [id number] [facility] [address], [place], [address], 06/25/2023 10:15:26 07/03/2023 non-stress test completed [email or web address] Informati on not available 07/03/2023 12:29:51 07/03/2023 non-stress test completed [address], [place], [address], 07/20/2023 13:17:02 07/03/2023 US, obstetric, follow-up completed kia Garcia [address], [place], [address], 07/15/2023 12:26:03 07/08/2023 non-stress test completed kia [place] [address], [place], [address], 07/08/2023 18:02:55 07/08/2023 US, obstetric, biophysical profile completed kia Dunbar [address], [place], [address], 07/08/2023 18:03:17 07/08/2023 US, obstetric, follow-up completed [email or web address] [address], [place], [address], 07/10/2023 09:09:28 07/10/2023 US, obstetric, follow-up completed [email or web address] [address], [place], [address], 07/14/2023 13:08:10 07/10/2023 US, obstetric, limited completed [place] [address], [place], [address], 07/10/2023 18:09:55 07/15/2023 non-stress test completed [address], [place], [address], 07/15/2023 17:48:21 07/15/2023 US, obstetric, follow-up completed [place] [address], [place], [address], 07/15/2023 18:23:12 07/15/2023 US, obstetric, biophysical profile + non-stress test completed [place] [address], [place], [address], 07/15/2023 18:23:24 07/15/2023 US, obstetric, follow-up completed [email or web address] [address], [place], [address], 07/15/2023 21:15:40 07/22/2023 US, obstetric, biophysical profile + non-stress test completed [place] [address], [place], [address], 07/22/2023 16:28:48 07/22/2023 US, obstetric, biophysical profile + non-stress test completed [email or web address] [address], [place], [address], 07/23/2023 09:54:34 12/22/2023 non-stress test completed [email or web address] [place] [address], [place], [address], 12/22/2023 20:30:25 Procedure Notes None recorded. Medical Equipment None Reported. Allergies No known drug allergies Medications Name Sig Start Date Stop Date Status Note LastModified by Organization Details LastModified Time amoxicill in 500 mg capsule TAKE 1 CAPSULE BY MOUTH THREE TIMES DAILY 12/03 completed Not Available Not Available Not Available medroxypr ogesteron e 10 mg tablet TAKE 1 TABLET BY MOUTH ONCE DAILY FOR 10 DAYS active Not Available Not Available No t Available metformin 500 mg tablet take 1 tablet by oral route 2 times every day with morning and evening meals 05/12 completed Prescrib ed Elsewher e: No Locat ion: [facility] odify By: lew ortega DateTime : 07/20/19 02:15:00 PM Not Available Not Available Not Available clomiphen e citrate 50 mg tablet TAKE 2 TABLETS BY MOUTH ONCE DAILY FOR 5 DAYS 12/30 completed Not Available Not Available Not Available fluconazo le 200 mg tablet TAKE 1 TABLET BY MOUTH EVERY OTHER DAY FOR 3 DOSES 04/16 completed Not Available Not Available Not Available permethri n 5 % topical cream USE DIRECTED 11/15 completed Not Available Not Available Not Available nystatin- triamcino lone 100,000 unit/gram -0.1 % topical ointment APPLY OINTMENT TOPICALL Y TO AFFECTED AREA TWICE DAILY FOR 5 DAYS NEEDED 04/16 completed Not Available Not Available Not Available progester one 50 mg/mL intramusc ular oil 01/20 completed Not Available Not Available Not Available erythromy leona 5 mg/gram (0.5 %) eye ointment INSTILL 1 CM RIBBON INTO AFFECTED EYE(S) 4 TIMES DAILY FOR 7 DAYS 06/10 completed Not Available Not Available Not Available progester one micronize d 200 mg capsule take 1 capsule by oral route every day at night time days 1-12 11/15 completed Not Available Not Available Not Available estradiol 2 mg tablet TAKE 1 TABLET BY MOUTH TWICE DAILY 01/20 completed Not Available Not Available Not Available ibuprofen 600 mg tablet TAKE 1 TABLET BY MOUTH EVERY 6 HOURS NEEDED FOR CRAMPS 08/26 completed Not Available Not Available Not Available letrozole 2.5 mg tablet TAKE 3 TABLETS BY MOUTH ONCE DAILY FOR 5 DAYS 12/30 completed Not Available Not Available Not Available Cetrotide 0.25 mg subcutane ous kit 12/30 completed Not Available Not Available Not Available leuprolid e 1 mg/0.2 mL subcutane ous kit 12/30 completed Not Available Not Available Not Available azithromy leona 500 mg tablet TAKE 2 TABLETS BY MOUTH DIRECTED ONE DOSE. TAKE AT THE SAME TIME 12/30 completed Not Available Not Available Not Available Sprintec (28) 0.25 mg-35 mcg tablet TAKE 1 TABLET BY MOUTH ONCE DAILY 12/30 completed Not Available Not Available Not Available TriNessa (28) 0.18 mg(7)/0.2 15 mg(7)/0.2 5 mg(7)-35 mcg tablet take 1 tablet by oral route every day 05/12 completed Prescrib ed Elsewher e: No Locat ion: [facility] adin [facility] M odify By: lew ortega DateTime : 09/12/19 01:00:00 PM Not Available Not Available Not Available Menopur 75 unit subcutane ous solution 12/30 completed Not Available Not Available Not Available Clomid 12/03 completed Not Available Not Available Not Available Progester one in Oil 04/15 completed Not Available Not Available Not Available One A Day Women's DHA active Not Available Not Available Not Available Gonal-F RFF Redi-Ject 900 unit/1.5 mL subcutane ous pen injector 12/30 completed Not Available Not Available Not Available Novarel 5,000 unit intramusc ular solution 12/30 completed Not Available Not Available Not Available Vitals Date Recorded Body height Body mass index (BMI) Body weight Provider Name and Address Organization Details Last Updated DateTime 07/22/2023 170.18 cm 38.7 kg/m2 118089.315 39 g Eimli Oconnell [facility] 07/22/2023 16:33:09 Date Recorded Body height Body mass index (BMI) Body weight Systolic blood pressure Diastolic blood pressure Provider Name and Address Organization Details Last Updated DateTime 08/26/2023 170.18 cm 36.3 kg/m2 290502.4 3 g 136 mm[Hg] 81 mm[Hg] Emilividya Oconnell [facility] 4 10:51:11 Date Recorded Body height Body mass index (BMI) Body weight Systolic blood pressure Diastolic blood pressure Provider Name and Address Organization Details Last Updated DateTime 02/26/2024 170.18 cm 39.5 kg/m2 284639.2 8 g 134 mm[Hg] 87 mm[Hg] Emili [facility] 16:16:51 Social History Question Answer Notes LastModified by Organizat ion Details LastModified Time Tobacco Smoking Status Former Smoker [facility] 07/22/2023 15:55:31 Do You Have An Advance Directive? No Information not available 12/03/2020 What Is Your Level Of Alcohol Consumption? None [email or web address] Information not available 04/15/2023 If You Are , What Was Your Level Of Alcohol Consumption Prior To ? Occasional [email or web address] Information not available 07/22/2023 How Many Years Have You Consumed Alcohol? 9 [email or web address] Information not available 06/10/2023 Are You Blind Or Do You Have Difficulty Seeing? No Information not available 12/03/2020 What Is Your Level Of Caffeine Consumption? Moderate [email or web address] Information not available 06/10/2023 In The 14 Days Before Symptom Onset, Have You Had Close Contact With A Laboratory-confi rmed COVID-19 While That Case Was Ill? No Information not available 12/03/2020 In The 14 Days Before Symptom Onset, Have You Had Close Contact With A Person Who Is Under Investigation For COVID-19 While That Person Was Ill? No Information not available 12/03/2020 Have You Been To An Area Known To Be High Risk For COVID-19? No Information not available 12/03/2020 Are You Deaf Or Do You Have Serious Difficulty Hearing? No Information not available 12/03/2020 What Type Of Diet Are You Following? REGULAR Information not available 12/03/2020 Do You Or Have You Ever Used E-cigarettes Or Vape? Never Used Electronic Cigarettes [email or web address] Information not available 07/22/2023 What Is The Highest Grade Or Level Of School You Have Completed Or The Highest Degree You Have Received? [id number] Information not available 12/03/2020 What Is Your Occupation? [employer] Information not available 12/03/2020 Are There Any Guns Present In Your Home? Yes Information not available 12/03/2020 What Was The Date Of Your Most Recent Tobacco Screening? 02/26/2024 [email or web address] Information not available 02/26/2024 Do You Use Protection During Sex? No Information not available 12/03/2020 Do You Use Your Seat Belt Or Car Seat Routinely? Yes Information not available 12/03/2020 Do You Have Smoke And Carbon Monoxide Detectors In Your Home? No Information not available 12/03/2020 Do You Or Have You Ever Used Smokeless Tobacco? Never Used Smokeless Tobacco [email or web address] Information not available 07/22/2023 How Much Tobacco Do You Smoke? No [email or web address] Information not available 07/18/2020 Do You Feel Stressed (tense, Restless, Nervous, Or Anxious, Or Unable To Sleep At Night)? [id number] Information not available 12/03/2020 Do You Use Any Illicit Or Recreational Drugs? No Information not available 12/03/2020 Do You Use Sunscreen Routinely? Yes Information not available 12/03/2020 Have You Used IV Drugs? No Information not available 12/03/2020 Sex: Unknown Functional Status Question Answer Note LastModified by Organizat ion Details LastModified Time Do you have difficulty walking or climbing stairs? No [email or web address] Information not available 07/22/2023 Are you able to walk? [email or web address] Information not available 12/03/2020 Are you able to care for yourself? Yes [email or web address] Information not available 07/22/2023 Do you have difficulty dressing or bathing? No [email or web address] Information not available 07/22/2023 What is your exercise level? Occasional [email or web address] Information not available 07/18/2020 Mental Status None recorded. Family History Relationship Description Onset Age of this Age Resolved Age Notes LastModified by Organization Details LastModified Time Mother Disorder of thyroid gland [email or web address] Not available 06/10 17:05:14 Paternal Grandmother Disorder of thyroid gland Not available 06/10 17:05:14 Maternal Aunt Disorder of thyroid gland [email or web address] Not available 06/10 17:05:14 Medical History Condition Response Allergies (Food, seasonal, environmental ) N Other N Drug/Latex Allergies/Reactions N Breast Cancer N Blood Transfusion N Lung Disease N Dermatologic Disorders N Defects or Inherited Disease N Breast Problem N Gestational Diabetes N Hematologic disorders N Anesthesia Complications N History of STI N Deep Vein Thrombosis N Polycystic ovary syndrome Y Anxiety Disorder N Autoimmune disease N Arthritis N Polyps N Infertility Y History of abnormal pap N Acid Reflux (GERD) N Cancer N Varicosities N Stroke N Neurologic/Epilepsy N Endometriosis N High Cholesterol N Headaches N Fibromyalgia N Kidney Disease N Heart Problems N Thyroid Problems N Kidney or Bladder Problems N GI Problems N Eating Disorder N Anemia N Art (IVF or FET) Y Psychiatric Illness N Ovarian Cancer N Diabetes N Pulmonary (TB, Asthma) N Hepatitis/Liver Disease N Eczema N Urinary Tract Infection N Abuse/Domestic Violence N Asthma N Trauma/Violence N Depression/ depression N Heart Disease N Pre-Eclampsia N Hypertension N Osteoporosis N Thrombophilias N Gynecological History Statement/Question Response Flow Moderate Date of LMP 10/03/2021 On BCP's at Conception? N N Was last menstrual period normal Y STIs/STDs N HPV Vaccine N Duration of Flow (days) 8 Current Control Method None Age at First Child 5 Sexually Active? Y Menses Monthly Y Date of Last Pap Smear 02/26/2024 Sexual Problems? N LMP Definite N Obstetrics History GPAL:G 2 P 2 0 0 2 Type Value Full Term 2 Living 2 Total 2 Past Encounters Encounter ID Performer Location Encounter Start Date Encounter Closed Date Diagnosis/Indication Diagnosis SNOMED-CT Code Diagnosis ICD10 Code Diagnosis [id number] [address],[place] [address] 07/18/2020 17:44:36 07/19/2020 17:33:27 Trying to conceive 155845019 Z31.9 check lh and call for mlp reviewed se of clomid including multiple gestation, handout given Gynecologi c examination 71037702 Z01.419 [id number] [facility] [address],[place] [address] 12/03/2020 10:34:52 12/03/2020 11:09:06 Vaginitis 00922888 N76.0 Suspect yeast infections . Vaginitis swab sent will call if further treatment required. Time spent in visit is a total of 15 mins with at least 50% of visit consisting of counseling and review of plan of care. Additional precaution lin measures were taken to minimize potential exposure to the Covid-19 virus during this patient s visit, including available hand cra officer upon arrive, temperatur e check and being asked a series of screening questions. All staff wore face coverings during this encounter, as well as provided additional cleaning and sanitizing of all surfaces, including countertop s, pens, chairs, door handles, light switches, etc, prior to and following the patient s visit. [id number] Ivonne Becerril [facility] [address],[place] [address] 12/06/2020 10:09:37 12/06/2020 11:34:49 Trying to conceive 327336244 Z31.9 Female infertility 56589 08 N97.9 [id number] Ivonne Becerril [facility] [address],[place] [address] 04/16/2021 13:14:15 04/17/2021 13:35:29 Anovulation 28046708 N97.0 [id number] [facility] [address],[place] [address] 11/15/2021 11:29:40 11/15/2021 12:10:55 Gynecologic examination 71266400 Z01.419 Take Calcium with Vitamin D 1200mg daily if not receiving in daily diet. It is strongly advised to have an annual flu shot and up can obtain at most pharmacies . If you have not had a TDap shot in the last 10 years you should obtain one as well. Discussed with patient & provided with informatio n regarding Gardisil vaccine to prevent the 4 strains for HPV that cause cervical cancer if under age 26. Encourage safe sexual practices, to use condoms and limit partners if not already in a monogamous relationsh ip. Do monthly self breast exams. Have mammogram yearly or every other year depending on family history. BRCA testing is now available for patients with strong genetic history of female cancer. If interested contact the office. Engage in daily exercise of low impact aerobic exercise 45-60 minutes 4-5 times weekly. Avoid tobacco and illicit drugs as well as using moderation with alcohol intake less than 1-2 8 oz beverages daily. This lifestyle behavior pattern will lead to less health conditions and longer life span. If BMI greater than 25 weight watchers or dietary consult advised. Patient received above instructio ns, and questions have been answered. If you have any questions please call or respond to this email. Patient was made aware of the patient portal and may obtain a paper copy of today's plan if desired. Pap/hpv sent STD Screen declined Genetic Screen discussed. Will consider. Colon Screen Discussed. Will have PCP order recommende d screening for fam Hx colon cancers Dexa Screen na Routine Labs UTD PCPMammo na [id number] [facility] [address],[place] [address] 12/30/2022 16:37:00 12/30/2022 17:04:21 [id number] Sherley Prince MD [facility] [address],[place] [address] 12/30/2022 16:38:16 12/31/2022 10:17:23 Maternal obesity complicating , childbirth and the puerperium, antepartum 7612943520 07 O99.211 bmi 38 IVF - in-v itro fertilization 2085714071 2102 O09.819 Venereal d isease screening 193014609 Z11.3 Vaccination not done 508 8395165 9108 Z28.[id number] [facility] [address],[place] [address] 01/20/2023 09:59:12 01/20/2023 10:26:27 screening 118092495 Z36.82 [id number] Sherley Prince MD [facility] [address],[place] [address] 01/20/2023 10:00:36 01/20/2023 10:59:26 IVF - in-vitro fertilization 7419379988 2102 O09.819 Maternal o besity complicating , childbirth and the puerperium, antepartum 1256238528 07 O99.211 bmi 38 Routine an tenatal care 139826423 Z34.81 [id number] [facility] [address],[place] [address] 02/20/2023 15:09:41 02/20/2023 15:49:49 Routine care 442040210 Z34.[id number] [facility] [address],[place] [address] 03/17/2023 15:58:33 03/17/2023 17:19:46 screening 966909279 Z36.3 [id number] Sherley Prince MD [facility] [address],[place] [address] 03/17/2023 15:59:15 03/17/2023 17:58:45 IVF - in-vitro fertilization 1146775325 2102 O09.819 [id number] Alicia Galvan [facility] [address],[place] [address] 03/18/2023 16:59:37 03/19/2023 10:10:50 Medical examination for suspected condition 484770784 Z04.3 Z3A.20 [id number] Ivonne Becerril CNM [facility] [address],[place] [address] 04/15/2023 17:25:31 04/16/2023 14:34:56 Routine care 408951778 Z34.92 [id number] Maryuri [facility] [address],[place] [address] 04/15/2023 17:26:00 04/16/2023 14:15:36 Maternal obesity complicating , childbirth and the puerperium, antepartum 2214625769 07 O09.819 Z36.2 Z3A.24 [id number] Maryuri [facility] [address],[place] [address] 05/15/2023 16:00:48 05/15/2023 16:41:24 Maternal obesity complicating , childbirth and the puerperium, antepartum 9192297759 07 O09.819 Z36.2 Z3A.29 [id number] Ivonne Becerril [facility] [address],[place] [address] 05/15/2023 16:01:14 05/17/2023 14:12:33 Routine care 074410726 Z34.92 [id number] Ivonne Becerril [facility] [address],[place] [address] 05/29/2023 10:24:28 05/29/2023 11:22:35 Routine care 494519568 Z34.92 [id number] Holly Flores [facility] [address],[place] [address] 06/10/2023 16:29:54 06/10/2023 17:00:23 IVF - in-vitro fertilization 1866066050 2102 O09.813 O99.213 Z3A.32 [id number] Ivonne Becerril [facility] [address],[place] [address] 06/10/2023 16:30:35 06/10/2023 17:15:17 Routine care 545791595 Z34.92 [id number] Floresita Monroy [place] [address],[place] [address] 06/19/2023 10:28:30 06/19/2023 16:49:38 IVF - in-vitro fertilization 7307384190 2102 O09.813 O99.213 Z3A.32 [id number] Jannet Rodriguez [place] [address],[place] [address] 06/19/2023 10:28:52 06/19/2023 11:13:45 Maternal obesity complicating , childbirth and the puerperium, antepartum 8170299698 07 O09.819 Z36.2 Z3A.29 [id number] Ivonne Becerril [facility] [address],[place] [address] 06/19/2023 10:29:09 06/19/2023 12:40:17 Routine care 455517991 Z34.92 [id number] Cleo Muhammad [facility] [address],[place] [address] 06/24/2023 16:33:15 06/24/2023 18:55:25 Maternal obesity complicating , childbirth and the puerperium, antepartum 5953868364 07 O09.819 Z36.2 Z3A.34 [id number] Ivonne Becerril [facility] [address],[place] [address] 06/24/2023 16:34:24 06/24/2023 17:14:46 [id number] [facility] [address] [place] [address] 07/03/2023 09:57:20 07/03/2023 12:50:39 IVF - in-vitro fertilization 2688219866 2101 O09.813 O99.213 Z3A.32 [id number] Ivonne Becerril [facility] [address] [place] [address] 07/03/2023 09:58:14 07/03/2023 11:42:47 Routine care 862521717 Z34.92 [id number] Cleo Muhammad [facility] [address],[place] [address] 07/08/2023 16:25:49 07/08/2023 18:20:03 Maternal obesity complicating , childbirth and the puerperium, antepartum 9199986388 07 O09.819 O99.213 Z3A.36 [id number] Cleo Muhammad [facility] [address],[place] [address] 07/08/2023 16:26:21 07/08/2023 18:21:56 Maternal obesity complicating , childbirth and the puerperium, antepartum 6668903698 07 O09.819 O99.213 Z3A.36 [id number] Ivonne Becerril [facility] [address],[place] [address] 07/08/2023 16:26:50 07/08/2023 18:21:12 Routine care 698206676 Z34.92 [id number] [facility] [address],[place] [address] 07/10/2023 10:07:07 07/10/2023 15:00:01 Oligohydramnios 72451553 O41.03X1 [id number] Carol [facility] [address],[place] [address] 07/15/2023 16:59:26 07/16/2023 09:02:25 IVF - in-vitro fertilization 1729317853 2102 O09.813 O99.213 Z3A.32 [id number] Maryuri Watson [facility] [address],[place] [address] 07/15/2023 17:00:11 07/16/2023 09:05:16 Maternal obesity complicating , childbirth and the puerperium, antepartum 9452895184 07 O09.819 O99.213 Z3A.37 [id number] Ivonne Becerril [facility] [address],[place] [address] 07/15/2023 17:01:07 07/17/2023 10:07:14 Routine care 152255253 Z34.92 [id number] Cleo Muhammad [facility] [address],[place] [address] 07/22/2023 15:54:26 07/23/2023 08:51:30 Maternal obesity complicating , childbirth and the puerperium, antepartum 7843991957 07 O99.213 O09.813 Z3A.38 [id number] Holly Flores [place] [address],[place] [address] 07/22/2023 15:54:56 07/22/2023 17:05:01 Maternal obesity complicating , childbirth and the puerperium, antepartum 4877790962 07 O99.213 O09.813 Z3A.38 [id number] Ivonne Becerril [facility] [address],[place] [address] 07/22/2023 15:55:19 07/22/2023 16:46:34 Routine care 063133083 Z34.92 [id number] Emili Oconnell [facility] [address],[place] [address] 08/26/2023 10:27:21 08/26/2023 11:54:44 care 766580732 Z39.2 normal pp visit, f/u 6 month wwe [id number] Ivonne Becerril [facility] [address],[place] [address] 02/26/2024 16:08:55 02/26/2024 16:39:24 Gynecologic examination 56921478 Z01.419 Amenorrhea 84843743 N91. 2 Health Concerns Section Related Observation LastModified by Organization Detai ls LastModified Time None Recorded Concern Status LastModified by Organization Details LastModified Time None Recorded Advance Directives Directive N: Payers Encounter Date Sequence Insurance Name Policy Number Policy Bhakta Covered Member ID Bhakta Member ID Guarantor Name 07/22/2023 1 [facility] [id number] Carol Bishop [id number] Carol Hannah 07/22/2023 1 [facility] [id number] Carol Bishop [id number] Carol Brielle 07/22/2023 1 [facility] [id number] Carol Bishop [id number] Carol Hannah 08/26/2023 1 [facility] [id number] Carol Bishop [id number] Carol Hannah 02/26/2024 1 [facility] [id number] Carol Bishop [id number] Carol Hannah Notes Date Note Type Note Provider Name and Address Organization Details Recorded Time 08/26/2023 text/html VisitReported bypatient.Quality:N Context:complicatio ns of : none; complications of labor: none; complications: none; feeding choice: breast and bottle; good support from partner/family; resumed menstrual bleeding no Associated Symptoms:no abnormal bleeding; no vaginal discharge; no pelvic pain; no constipation; no fecal incontinence; no dysuria; no urinary incontinence; no fever; no problems; no mastitis; normal mood Contraception Plan:declines contraceptionNotes: IVF , does not cycle on her own discussed progesterone q 3 months after done breast feeding Emili zuleta, [facility] 08/26/2023 20:13:53 02/26/2024 text/html Annual GYNReport ed bypatient.History:n o gynecologic complaints Menstrual cycle:no cycles without provera. pcos Breast:No breast pain; No breast lump; No nipple discharge Current Contraception: control not practiced Sexual complaints:No sexual complaints; No pain during intercourse; Normal libido Menopausal Symptoms:No menopausal symptoms; Normal vaginal lubrication Psychological symptoms:No depression; No anxiety; No PMDD Preventive measures:Encourage self breast examination; Encourage regular exercise; Encourage no tobacco useNotes:no hx of abnl pap Ivonne Becerril CNM [address], [place], [address], , P.C[facility] 02/26/2024 16:38:33 OBGyn Episode Ob Episode Information Episode Created Date Number of Fetuses Patient Bloodtype Patient rh Status Prepregnancy Weight lbs Domestic Partner Domestic Partner Phone Father Name Applications Support Analyst Status 07/18/19 21 1 CLOSED Fetus Data First Name Last Name Admitted to NICU Weight (g) Sex Living Outcome Pediatric Complications Fetus ID Race Codes Race Delivery Type 3543.46 0704 M Full Term [id number] Vaginal Delivery Bruce Calculation Initial Bruce Date Initial Exam Date Initial Exam Provider Initial Ultrasound Date Last Menstrual Period Date Ultra Sound Weeks Gestation 0 Eighteen To Twenty Week Bruce Update Ultra Sound Date Fundal Height At Umbil Quickening Date Ultra Sound Latest Weeks Gestation Final Bruce Confirmed By Final Bruce Confirmed Date Final Bruce Date Ultra Sound Latest Days Gestation 0 0 Menstrual History Last Menstrual Date Menses Monthly On Bcp Conception Prior Menses Frequency Hcg Plus Date Menarche Onset Age Delivery Information Delivery Date Delivery Type Labor Anesthesia Weeks Gestation Incision Type Labor Labor Length Hrs Delivered By Post Complications Tubal Sterilization Discharge Date Comments 9 39.1 Discharge Information Feeding Method Contraceptive Method Maternal HG B and HCT Levels Ob Episode Information Episode Created Date Number of Fetuses Patient Bloodtype Patient rh Status Prepregnancy Weight lbs Domestic Partner Domestic Partner Phone Father Name Applications Support Analyst Status 01/21/20 23 1 A Positive 248 CLOSED Fetus Data First Name Last Name Admitted to NICU Weight (g) Sex Living Outcome Pediatric Complications Fetus ID Race Codes Race Delivery Type 3444.75 [id number] F true Full Term Vaginal Delivery Problems Problem Notes Problem Name Start Date End Date Resolution Snomed Code Not e COVID-19 06/02/2023 [id number] ASA & Ser ial growth Maternal obesity complicating , childbirth and the puerperium, antepartum 12/31/2022 539602056945 BMI 3 8- ante testing at 37w IVF - in-vitro fertilization 12/31/2022 [id number] fe wendy echo normal, ante testing 36w Bruce Calculation Initial Bruce Date Initial Exam Date Initial Exam Provider Initial Ultrasound Date Last Menstrual Period Date Ultra Sound Weeks Gestation 07/30/2023 01/20/2023 12/30/2022 9 Eighteen To Twenty Week Bruce Update Ultra Sound Date Fundal Height At Umbil Quickening Date Ultra Sound Latest Weeks Gestation Final Bruce Confirmed By Final Bruce Confirmed Date Final Bruce Date Ultra Sound Latest Days Gestation 0 [email or web address] 01/20/2023 07/30/19 24 0 Pre- Flowsheet Flowsheet Date 01/20/2023 Stephens Score Blood Edema Fundus Height Fundus Units Glucose Ketones Leukocytes Nitrite Labor Signs Protein Cervic Dilation Cervic Effacement Cervic Station neg none none trace Type Weight in lbs Pre/Post Dialysis Refused Weight 244.059566722581 BP Diastolic BP Location Tested BP Systolic BP Type 79 120 Fetus Heart Rate Present A 155 Fetus Movement A No Comments Carol is a 32yo at 12.5 for care. Her last was an uncomplicated term vaginal delivery. This was conceived by IVF. Will plan echo and testing at 36w. BMI 38. Labs and NIPT today, normal NT today. She decided she will get the COVID vaccines. Routine care. Flowsheet Date 02/20/2023 Stephens Score Blood Edema Fundus Height Fundus Units Glucose Ketones Leukocytes Nitrite Labor Signs Protein Cervic Dilation Cervic Effacement Cervic Station neg none none trace Type Weight in lbs Pre/Post Dialysis Refused Weight 242.123072738521 BP Diastolic BP Location Tested BP Systolic BP Type 83 133 Fetus Heart Rate Present A 151 Fetus Movement A Yes Comments patient states that having s ome cramping. reviewed precautions, anatomy scan at 20 weeks, +FM Flowsheet Date 03/17/2023 Stephens Score Blood Edema Fundus Height Fundus Units Glucose Ketones Leukocytes Nitrite Labor Signs Protein Cervic Dilation Cervic Effacement Cervic Station Type Weight in lbs Pre/Post Dialysis Refused BP Diastolic BP Location Tested BP Systolic BP Type Fetus Heart Rate Present Fetus Movement Comments Flowsheet Date 03/17/2023 Stephens Score Blood Edema Fundus Height Fundus Units Glucose Ketones Leukocytes Nitrite Labor Signs Protein Cervic Dilation Cervic Effacement Cervic Station neg trace none trace Type Weight in lbs Pre/Post Dialysis Refused Weight 244.089151584410 BP Diastolic BP Location Tested BP Systolic BP Type 75 112 Fetus Heart Rate Present A 135 Fetus Movement A Yes Comments Doing well, no concerns. US today anatomy complete and wnl except spine and Ariana incomplete, FU next visit. Will schedule echo. Flowsheet Date 03/18/2023 Stephens Score Blood Edema Fundus Height Fundus Units Glucose Ketones Leukocytes Nitrite Labor Signs Protein Cervic Dilation Cervic Effacement Cervic Station Type Weight in lbs Pre/Post Dialysis Refused BP Diastolic BP Location Tested BP Systolic BP Type Fetus Heart Rate Present Fetus Movement Comments Flowsheet Date 04/15/2023 Stephens Score Blood Edema Fundus Height Fundus Units Glucose Ketones Leukocytes Nitrite Labor Signs Protein Cervic Dilation Cervic Effacement Cervic Station Type Weight in lbs Pre/Post Dialysis Refused BP Diastolic BP Location Tested BP Systolic BP Type Fetus Heart Rate Present Fetus Movement Comments Flowsheet Date 04/15/2023 Stephens Score Blood Edema Fundus Height Fundus Units Glucose Ketones Leukocytes Nitrite Labor Signs Protein Cervic Dilation Cervic Effacement Cervic Station neg none none trace Type Weight in lbs Pre/Post Dialysis Refused BP Diastolic BP Location Tested BP Systolic BP Type Fetus Heart Rate Present Fetus Movement A Yes Comments patient states that having s ome nausea and vomiting. anatomy incomplete f/u 4 weeks with GCT, doing well Flowsheet Date 05/15/2023 Stephens Score Blood Edema Fundus Height Fundus Units Glucose Ketones Leukocytes Nitrite Labor Signs Protein Cervic Dilation Cervic Effacement Cervic Station Type Weight in lbs Pre/Post Dialysis Refused BP Diastolic BP Location Tested BP Systolic BP Type Fetus Heart Rate Present Fetus Movement Comments Flowsheet Date 05/15/2023 Stephens Score Blood Edema Fundus Height Fundus Units Glucose Ketones Leukocytes Nitrite Labor Signs Protein Cervic Dilation Cervic Effacement Cervic Station neg none none trace Type Weight in lbs Pre/Post Dialysis Refused Weight 243.695593625272 BP Diastolic BP Location Tested BP Systolic BP Type 71 110 Fetus Heart Rate Present Fetus Movement A Yes Comments patient is having some press ure. precautions reviewed, anatomy complete, education done f/u 2 weeks gct today Flowsheet Date 05/29/2023 Stephens Score Blood Edema Fundus Height Fundus Units Glucose Ketones Leukocytes Nitrite Labor Signs Protein Cervic Dilation Cervic Effacement Cervic Station neg none 31 none trace Type Weight in lbs Pre/Post Dialysis Refused Weight 240.150763313126 BP Diastolic BP Location Tested BP Systolic BP Type 78 131 Fetus Heart Rate Present A 141 Present Fetus Movement A Yes Comments patient is having some hip p ain and discharge. growth next visit, IVF, BMI will start testing. education and precautions reviewed f/u 2 weeks Flowsheet Date 06/10/2023 Stephens Score Blood Edema Fundus Height Fundus Units Glucose Ketones Leukocytes Nitrite Labor Signs Protein Cervic Dilation Cervic Effacement Cervic Station Type Weight in lbs Pre/Post Dialysis Refused BP Diastolic BP Location Tested BP Systolic BP Type Fetus Heart Rate Present Fetus Movement Comments Flowsheet Date 06/10/2023 Stephens Score Blood Edema Fundus Height Fundus Units Glucose Ketones Leukocytes Nitrite Labor Signs Protein Cervic Dilation Cervic Effacement Cervic Station neg none none trace Type Weight in lbs Pre/Post Dialysis Refused Weight 241.05571957565 BP Diastolic BP Location Tested BP Systolic BP Type 83 165 78 130 Fetus Heart Rate Present Fetus Movement A Yes Comments covid last week, growth toda y 38%, feeling better, +FM, testing for IVF, gbs at 36wks, education and precautions Flowsheet Date 06/19/2023 Stephens Score Blood Edema Fundus Height Fundus Units Glucose Ketones Leukocytes Nitrite Labor Signs Protein Cervic Dilation Cervic Effacement Cervic Station Type Weight in lbs Pre/Post Dialysis Refused BP Diastolic BP Location Tested BP Systolic BP Type Fetus Heart Rate Present Fetus Movement Comments Flowsheet Date 06/19/2023 Stephens Score Blood Edema Fundus Height Fundus Units Glucose Ketones Leukocytes Nitrite Labor Signs Protein Cervic Dilation Cervic Effacement Cervic Station Type Weight in lbs Pre/Post Dialysis Refused BP Diastolic BP Location Tested BP Systolic BP Type Fetus Heart Rate Present Fetus Movement Comments Flowsheet Date 06/19/2023 Stephens Score Blood Edema Fundus Height Fundus Units Glucose Ketones Leukocytes Nitrite Labor Signs Protein Cervic Dilation Cervic Effacement Cervic Station neg none none trace Type Weight in lbs Pre/Post Dialysis Refused Weight 244.884366149736 BP Diastolic BP Location Tested BP Systolic BP Type 76 123 Fetus Heart Rate Present Fetus Movement A Yes Comments patient is having some back pain. NST and BPP 10/10, doing well, preadmit done plan gbs around 36 weeks, IOL around due date if undelivered, f/u one week Flowsheet Date 06/24/2023 Stephens Score Blood Edema Fundus Height Fundus Units Glucose Ketones Leukocytes Nitrite Labor Signs Protein Cervic Dilation Cervic Effacement Cervic Station Type Weight in lbs Pre/Post Dialysis Refused BP Diastolic BP Location Tested BP Systolic BP Type Fetus Heart Rate Present Fetus Movement Comments Flowsheet Date 06/24/2023 Stephens Score Blood Edema Fundus Height Fundus Units Glucose Ketones Leukocytes Nitrite Labor Signs Protein Cervic Dilation Cervic Effacement Cervic Station Type Weight in lbs Pre/Post Dialysis Refused BP Diastolic BP Location Tested BP Systolic BP Type Fetus Heart Rate Present Fetus Movement Comments Flowsheet Date 06/24/2023 Stephens Score Blood Edema Fundus Height Fundus Units Glucose Ketones Leukocytes Nitrite Labor Signs Protein Cervic Dilation Cervic Effacement Cervic Station Type Weight in lbs Pre/Post Dialysis Refused Weight [id number] BP Diastolic BP Location Tested BP Systolic BP Type 75 126 Fetus Heart Rate Present Fetus Movement Comments Decel noted during NST. Pt t o L & D for NST and BPP per SP. Cleo Rodriguez RN Flowsheet Date 07/03/2023 Stephens Score Blood Edema Fundus Height Fundus Units Glucose Ketones Leukocytes Nitrite Labor Signs Protein Cervic Dilation Cervic Effacement Cervic Station Type Weight in lbs Pre/Post Dialysis Refused BP Diastolic BP Location Tested BP Systolic BP Type Fetus Heart Rate Present Fetus Movement Comments Flowsheet Date 07/03/2023 Stephens Score Blood Edema Fundus Height Fundus Units Glucose Ketones Leukocytes Nitrite Labor Signs Protein Cervic Dilation Cervic Effacement Cervic Station Type Weight in lbs Pre/Post Dialysis Refused BP Diastolic BP Location Tested BP Systolic BP Type Fetus Heart Rate Present Fetus Movement Comments Flowsheet Date 07/03/2023 Stephens Score Blood Edema Fundus Height Fundus Units Glucose Ketones Leukocytes Nitrite Labor Signs Protein Cervic Dilation Cervic Effacement Cervic Station neg none none trace 1cm 50% -3 Type Weight in lbs Pre/Post Dialysis Refused Weight 247.734735068819 BP Diastolic BP Location Tested BP Systolic BP Type 70 106 Fetus Heart Rate Present Fetus Movement A Yes Comments patient is having some bloat ing, discharge, nausea, vomiting, and heartburn. nst r, gbs today, precautions reviewed f/u one week Flowsheet Date 07/08/2023 Stephens Score Blood Edema Fundus Height Fundus Units Glucose Ketones Leukocytes Nitrite Labor Signs Protein Cervic Dilation Cervic Effacement Cervic Station Type Weight in lbs Pre/Post Dialysis Refused BP Diastolic BP Location Tested BP Systolic BP Type Fetus Heart Rate Present Fetus Movement Comments Flowsheet Date 07/08/2023 Stephens Score Blood Edema Fundus Height Fundus Units Glucose Ketones Leukocytes Nitrite Labor Signs Protein Cervic Dilation Cervic Effacement Cervic Station Type Weight in lbs Pre/Post Dialysis Refused BP Diastolic BP Location Tested BP Systolic BP Type Fetus Heart Rate Present Fetus Movement Comments Flowsheet Date 07/08/2023 Stephens Score Blood Edema Fundus Height Fundus Units Glucose Ketones Leukocytes Nitrite Labor Signs Protein Cervic Dilation Cervic Effacement Cervic Station neg none 36 none trace Type Weight in lbs Pre/Post Dialysis Refused Weight 245.054848021472 BP Diastolic BP Location Tested BP Systolic BP Type 80 131 Fetus Heart Rate Present A Present Fetus Movement A Yes Comments patient states that having s ome back pain. declines cervical check. labor precautions f/u one week bpp 8 rpt thursday mirtha 8 cm, precautions +FM Flowsheet Date 07/10/2023 Stephens Score Blood Edema Fundus Height Fundus Units Glucose Ketones Leukocytes Nitrite Labor Signs Protein Cervic Dilation Cervic Effacement Cervic Station Type Weight in lbs Pre/Post Dialysis Refused BP Diastolic BP Location Tested BP Systolic BP Type Fetus Heart Rate Present Fetus Movement Comments Flowsheet Date 07/15/2023 Stephens Score Blood Edema Fundus Height Fundus Units Glucose Ketones Leukocytes Nitrite Labor Signs Protein Cervic Dilation Cervic Effacement Cervic Station Type Weight in lbs Pre/Post Dialysis Refused BP Diastolic BP Location Tested BP Systolic BP Type Fetus Heart Rate Present Fetus Movement Comments Flowsheet Date 07/15/2023 Stephens Score Blood Edema Fundus Height Fundus Units Glucose Ketones Leukocytes Nitrite Labor Signs Protein Cervic Dilation Cervic Effacement Cervic Station Type Weight in lbs Pre/Post Dialysis Refused BP Diastolic BP Location Tested BP Systolic BP Type Fetus Heart Rate Present Fetus Movement Comments Flowsheet Date 07/15/2023 Stephens Score Blood Edema Fundus Height Fundus Units Glucose Ketones Leukocytes Nitrite Labor Signs Protein Cervic Dilation Cervic Effacement Cervic Station neg none none trace Type Weight in lbs Pre/Post Dialysis Refused Weight 245.896997278210 BP Diastolic BP Location Tested BP Systolic BP Type 77 125 Fetus Heart Rate Present Fetus Movement A Yes Comments patient is having some press ure. bpp 04/21, declines exam, precautions reviewed, next visit consider scheduling iol around due date Flowsheet Date 07/22/2023 Stephens Score Blood Edema Fundus Height Fundus Units Glucose Ketones Leukocytes Nitrite Labor Signs Protein Cervic Dilation Cervic Effacement Cervic Station Type Weight in lbs Pre/Post Dialysis Refused BP Diastolic BP Location Tested BP Systolic BP Type Fetus Heart Rate Present Fetus Movement Comments Flowsheet Date 07/22/2023 Stephens Score Blood Edema Fundus Height Fundus Units Glucose Ketones Leukocytes Nitrite Labor Signs Protein Cervic Dilation Cervic Effacement Cervic Station Type Weight in lbs Pre/Post Dialysis Refused BP Diastolic BP Location Tested BP Systolic BP Type Fetus Heart Rate Present Fetus Movement Comments Flowsheet Date 07/22/2023 Stephens Score Blood Edema Fundus Height Fundus Units Glucose Ketones Leukocytes Nitrite Labor Signs Protein Cervic Dilation Cervic Effacement Cervic Station neg none none trace Type Weight in lbs Pre/Post Dialysis Refused Weight 247.383589050988 BP Diastolic BP Location Tested BP Systolic BP Type Fetus Heart Rate Present Fetus Movement A Yes Comments MIRTHA 5 cm, discussed with DR. Sethi, send to LD for IOL, pt has no complaints of leaking Menstrual History Last Menstrual Date Menses Monthly On Bcp Conception Prior Menses Frequency Hcg Plus Date Menarche Onset Age Genetic Screening And Infection History Question Response Note Mental Retardation/Autism false Patient's Age Will Be 35 Years Or Older At Estim ated Date of Delivery false Thalassemia (Kazakh, Tristanian, Mediterranean, Or Background): MCV < 80 false Neural Tube Defect (Meningomyelocele, Spina Bifi da, Or Anencephaly) false Congenital Heart Defect false Down Syndrome false Anastacio-Sachs (eg, Gnosticism, Cajun, Maldivian-[place]) f alse Josh Disease false Sickle Cell Disease Or Trait () false Hemophilia Or Other Blood Disorders false Muscular Dystrophy false Cystic Fibrosis false [place] false Intellectual Disability/Autism false If Yes, Was Person Tested For Fragile X? false Other Inherited Genetic Or Chromosomal Disorder false Maternal Metabolic Disorder (eg, Type 1 Diabetes , PKU) false Patient Or Baby's Father Had A Child With Defects Not Listed Above false Recurrent Loss, Or A Stillbirth false Medications (including Suppl ements, Vitamins, Herbs, OTC Drugs), Illicit/Recreational Drugs, Alcohol true If Yes, Agent(s) And Strength/Dosage false Any Other Genetic History false Live With Someone With TB Or Exposed To TB false Patient Or Partner Has History Of Genital Herpes false Rash Or Viral Illness Since Last Menstrual Perio d false History Of STD, Gonorrhea, Chlamydia, HPV, Syphi lis false Other Infection History false History of HIV false History of Hepatitis false Prior GBS-infected child false Hemoglobinopathy Or Carrier false Other Structural Defect false Recent Travel History Outside of Country false Delivery Information Delivery Date Delivery Type Labor Anesthesia Weeks Gestation Incision Type Labor Labor Length Hrs Delivered By Post Complications Tubal Sterilization Discharge Date Comments 4 Induce d [facility]-Ep id[facility] 38.6 false Ivonne BecerrilM COVID-19, IVF - in-vitro fertiliza tion ,Maternal obesity complicat ing , childbirt h and the [place] m, antepartu m Discharge Information Feeding Method Contraceptive Method Maternal HG B and HCT Levels
== END 2024-09-20 09:01 | disposition home or self-care (01) ==
PROVIDERS: PCP Nurse Practitioner Family; Visit Provider Nurse Practitioner Family
DX: S89.91XA Unspecified injury of right lower leg, initial encounter (principal); X58.XXXA Exposure to other specified factors, initial encounter
CPT/HCPCS: 73564